=== PATIENT | male | born 1940 | race Caucasian/White ===

== ENCOUNTER 2017-11-04 10:46 | Emergency (ER) | payer OTHER ==
--- NOTE | 2017-11-04 10:59 | PDOC ---
History of Present Illness - General Chief Complaint: Pain Stated Complaint: SHOULDER PAIN Time Seen by Provider: 11/04/17 10:59 - History of Present Illness Initial Comments: 77 year old male with PMH of HTN and CVA (4 years prior, residual left-sided hemiparesis and occasional paresthesias with subsequant right sided overuse) presenting to our ED for right sided shoulder and neck pain that has worsened over the past few weeks. Describes the pain as sharp, intermittent, maximum of 8 /10, worse with movement, and better with rest. The pain radiates up and down his right posterior cervical spine down to his shoulder. He has seen Dr. Chen 5 days prior who obtained an xray which did not show any acute pathology but demonstrated mild arthritis. He then went to a specialist who performed a "nerve " test which he did not yet get the results of . The next test scheduled was an MRI which he says will take too long as it is 2 months away. States he wants an earlier MRI. Of note, he first experienced this pain three months prior after lifting some heavy bottles of water up the stairs. However, this pain he experienced then was less in intensity. He also admits to heavy right sided usage sinsce onset of left sided hemiparesis 4 years prior. Denies fevers, chills, SOB, cough, chest pain, headache, fevers, visual symptoms, balance issues, or other symptoms. 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) COPD: No CHF: No Dementia: No Diabetes: No GI Disorders: Yes (GERD) Disorders: Yes (PROSTATE) HTN: Yes Hypercholesterolemia: Yes Liver Disease: No Seizures: No Thyroid Disease: No - Surgical History Abdominal Surgery: No Appendectomy: Yes Cardiac Surgery: No Cholecystectomy: Yes Lung Surgery: No Neurologic Surgery: No Orthopedic Surgery: No - Immunization History Immunization Up to Date: Yes - Suicide/Smoking/Psychosocial Hx Smoking History: Never smoked Have you smoked in the past 12 months: No Hx Alcohol Use: Yes (WINE SOCIALLY) Drug/Substance Use Hx: No Substance Use Type: None Hx Substance Use Treatment: No Review of Systems - Review of Systems Constitutional: No: Chills, Diaphoresis, Fever, Weakness HEENTM: No: Blurred Vision, Tearing Respiratory: No: Cough, Orthopnea, Shortness of Breath, Wheezing Cardiac (ROS): No: Chest Pain, Edema, Irregular Heart Rate ABD/GI: No: Diarrhea, Nausea, Vomiting : No: Burning, Dysuria, Discharge Musculoskeletal: Yes: Back Pain, Joint Pain, Muscle Pain, Neck Pain. No: Muscle Weakness Integumentary: No: Erythema, Flushing, Lesions Neurological: Yes: Pre-Existing Deficit, Tingling. No: Headache Psychiatric: No: Anxiety, Depression *Physical Exam - Physical Exam General Appearance: Yes: Nourished, Appropriately Dressed. No: Apparent Distress HEENT: positive: EOMI, MAYCO, Normal ENT Inspection, Normal Voice Neck: positive: Trachea midline, Normal Thyroid, Supple. negative: Tender, Rigid Respiratory/Chest: positive: Lungs Clear, Normal Breath Sounds. negative: Chest Tender, Respiratory Distress, Accessory Muscle Use Cardiovascular: positive: Regular Rhythm, Regular Rate Gastrointestinal/Abdominal: positive: Normal Bowel Sounds, Flat, Soft. negative : Tender Lymphatic: negative: Adenopathy, Tenderness Musculoskeletal: positive: Other (Positive painful arc test at apprximately 80 degrees of abduction on ther right side but able to lift shoulder above 90 degrees. Point tender along deltoid posteriorly and posterior right cervical paraspinal muscles/ upper latisimus dorsi). negative: Normal Inspection (left sided keira[aresis), CVA Tenderness, Decreased Range of Motion Extremity: positive: Normal Capillary Refill, Tender (tender upper posterior shoulder). negative: Normal Inspection, Normal Range of Motion Integumentary: positive: Normal Color, Dry, Warm Neurologic: positive: Fully Oriented, Alert, Normal Mood/Affect, Normal Response , Motor Strength 5/5 Medical Decision Making - Medical Decision Making 77 year old male with PMH of CVA with left sided deficits and overcompensation with right sided usage presenting with right sided neck and shoulder pain. PE and history of over use, acute strain three months prior, and overall chronicity point to a musculoskeletal cause more than any other concerning issue (carotid artery dissection, acute cervical/ spinal fracture, stroke, etc) . Given specific PE finding of + painful arc test, this is likely shoulder impingement vs. muscular spasm. Will DC with home OTC tylenol and ibuprofen usage + folow up with his origial orthopedic surgeon. 11/04/17 12:38 *DC/Admit/Observation/Transfer Diagnosis at time of Disposition: Neck pain Shoulder pain, right Qualifiers: Chronicity: chronic Qualified Code(s): M25.511 - Pain in right shoulder; G89.29 - Other chronic pain - Discharge Dispostion Disposition: HOME Condition at time of disposition: Improved Decision to Admit order: No - Referrals Referrals: Umesh Chen MD [Primary Care Provider] - - Patient Instructions Printed Discharge Instructions: DI for Chronic Neck Pain Additional Instructions: Your neck pain and shoulder pain are due to muscular overuse. Please use your Tylenol and lower your heavy lifting until you see your orthopedic surgeon who operated on your knee. Please see him within one week. Please return to the ED if you have new or worsening symptoms. - Post Discharge Activity
[2017-11-04] MEDS ORDERED: KETOROLAC TROMETHAMINE 15 MG/ML VIAL IM ONE (11:19)
[2017-11-04] MEDS ORDERED: traMADol HCL 50 MG TABLET PO ONE (11:30)
[2017-11-04 11:32] VITALS: BP 114/82; PULSE 94; TEMP 98.1; BMI 31.3
[2017-11-04] MEDS ORDERED: traMADol HCL 50 MG TABLET ONE (12:01)
--- NOTE | 2017-11-04 12:12 | PDOC ---
Attending Attestation - Resident Resident Name: Shon Zaragoza - ED Attending Attestation I have performed the following: I have examined & evaluated the patient, The case was reviewed & discussed with the resident, I agree w/resident's findings & plan, Exceptions are as noted - HPI HPI: 11/04/17 12:14 The patient is a 77 year old male, with a significant PMH of CVA with residual left hemiparesis, GERD, HTN, and hypercholesterolemia who presents to the emergency department with right shoulder pain that began approximately 3 months ago. Patient states symptoms began after carrying a pack of heavy water bottles 3 months ago. Pain has progressively become worse over the last few weeks. Pt points to his trapezium muscle on the R as the source of the pain. Patients notes pain is exacerbated with movement of his RUE and alleviated at rest. Denies numbness or weakness in the RUE. He is being worked up by his PMD Dr. Chen for this pain and is approved for an MRI for work up but it is not scheduled for a few weeks. Pt presented to the ED today hoping to have his MRI done here today. The patient denies chest pain, shortness of breath, headache and dizziness. Denies fever, chills, nausea, vomit, diarrhea and constipation. Denies dysuria, frequency, urgency and hematuria. Allergies: NKDA Past surgical history: Appendectomy, Cholecystectomy Social history: Drinks wine socially but denies alcohol and recreational drug use. PCP: Umesh Chen - Physicial Exam PE: 11/04/17 12:25 GENERAL: Awake, alert, and fully oriented, in no acute distress HEAD: No signs of trauma EYES: PERRLA, EOMI, sclera anicteric, conjunctiva clear ENT: Auricles normal inspection, hearing grossly normal, nares patent, oropharynx clear without exudates. Moist mucosa NECK: Normal ROM, supple, no lymphadenopathy, JVD, or masses LUNGS: Breath sounds equal, clear to auscultation bilaterally. No wheezes, and no crackles HEART: Regular rate and rhythm, normal S1 and S2, no murmurs, rubs or gallops ABDOMEN: Soft, nontender, normoactive bowel sounds. No guarding, no rebound. No masses EXTREMITIES: Normal range of motion, no edema. No clubbing or cyanosis. No cords, erythema, or tenderness. P NEUROLOGICAL: Normal speech, cranial nerves intact, decreased strength on LUE and LLE (at baseline). 5/5 strength in RUE. Normal sensation to RUE. BACK: No midline spinal tenderness in cervical/thoracic/lumbar region. +ttp along the R trapezium, increases with ROM of RUE. SKIN: Warm, Dry, normal turgor, no rashes or lesions noted. - Medical Decision Making 11/04/17 12:29 77yo M with MMP presents to the ED requesting MRI for 3 months of R sided trapezius pain. Vitals wnl (initial O2 sat 94%, 96% on my exam). Exam with ttp to R trap muscle consistent with msk pain. Pt is NVI. Given lack of emergent pathology and intact NV status, discussed with pt that an emergent MRI in the ED is not necessary, [place] if he already has one planned as an outpt. Pt expresses understanding. Given tramadol for pain control, will DC to f/u with PMD. I discussed the physical exam findings, ancillary test results and final diagnoses with the patient. I answered all of the patient's questions. The patient was satisfied with the care received and felt comfortable with the discharge plan and treatment plan. The patient will call their primary care physician within 24 hours to arrange follow-up and will return to the Emergency Department with any new, persistent or worsening symptoms.
--- NOTE | 2017-11-05 13:31 | EKG ---
Test Reason : Blood Pressure : / mmHG Vent. Rate : 079 BPM Atrial Rate : 079 BPM P-R Int : 196 ms QRS Dur : 088 ms QT Int : 360 ms P-R-T Axes : 015 -07 -12 degrees QTc Int : 412 ms NORMAL SINUS RHYTHM MINIMAL VOLTAGE CRITERIA FOR LVH, MAY BE NORMAL VARIANT BORDERLINE ECG WHEN COMPARED WITH ECG OF 16-JUL-2015 05:53, VENT. RATE HAS INCREASED BY 34 BPM QT HAS LENGTHENED Confirmed by CECILIA SADLER MD ([id number]) on 11/05/2017 1:30:53 PM Referred By: Confirmed By:CECILIA SADLER MD
== END 2017-11-04 13:09 | disposition home or self-care (01) ==
LOC: JER 10:46
DX: M54.2 Cervicalgia (principal); M25.511 Pain in right shoulder; G89.29 Other chronic pain; I10 Essential (primary) hypertension; E78.00 Pure hypercholesterolemia, unspecified; K21.9 Gastro-esophageal reflux disease without esophagitis; I69.854 Hemiplegia and hemiparesis following other cerebrovascular disease affecting left non-dominant side
CPT/HCPCS: 93005; 93010; 99283-25

== ENCOUNTER 2019-03-17 13:11 | Day surgery (SDC) | payer OTHER ==
[2019-03-17 13:48] VITALS: TEMP 98.3; BMI 32.2
[2019-03-17 14:56] VITALS: PULSE 60
[2019-03-17 15:49] VITALS: BP 115/68
--- NOTE | 2019-03-21 17:01 | PATH ---
Surgical Pathology Report Patient Name: VILMA DEAN [facility]. Rec. #: [id number] /Age/Gender: 1940 (Age: 79) / M Account: [id number] Location: U-ENDOSCOPY Taken: 03/17/2019 Received: 03/18/2019 Reported: 03/21/2019 Physicians: Gómez Cervantes M.D. Specimen(s) Received BX BODY Clinical History Heartburn with regurgitation despite PPI Postoperative diagnosis: Nodular mucosa in body, rule out H. Pylori, hiatal hernia Final Diagnosis BODY, BIOPSY: GASTRIC MUCOSA WITH MILD CHRONIC GASTRITIS AND FOCAL DILATED GLANDS. IMMUNOSTAIN FOR H. PYLORI IS NEGATIVE. NEGATIVE FOR INTESTINAL METAPLASIA. Electronically Signed Aracely Aguillon M.D. Gross Description Received in formalin, labeled "biopsy body" are 3 myeer, irregular portions of soft tissue ranging from 0.2-0.3 cm. in greatest dimension. The specimens are submitted in toto in one cassette. 03/18/2019 saudi03/18/2019
== END 2019-03-17 15:49 | disposition home or self-care (01) ==
LOC: JASU-ENDO 13:11
PROVIDERS: ATTEND Internal Medicine Gastroenterology
PROC: 0DB68ZX Excision of Stomach, Via Natural or Artificial Opening Endoscopic, Diagnostic (ICD-10-PCS; principal; 2019-03-17 13:30)
DX: K29.50 Unspecified chronic gastritis without bleeding (principal); K44.9 Diaphragmatic hernia without obstruction or gangrene
CPT/HCPCS: 88305-TC; 88342-TC

== ENCOUNTER 2019-05-21 06:40 | Day surgery (SDC) | payer OTHER ==
[2019-05-20 16:00] VITALS: BMI 32.2
[2019-05-21] MEDS ORDERED: KETOROLAC TROMETHAMINE 30 MG/1 ML VIAL ONE (09:18)
[2019-05-21] MEDS ORDERED: MIDAZOLAM HCL 2 MG/2 ML SINGLE DOSE VIAL ONE (09:18)
[2019-05-21] MEDS ORDERED: PROPOFOL 20 ML ONE ×2 (09:18)
[2019-05-21] MEDS ORDERED: LIDOCAINE HCL/PF 2% SDV 5ML VIAL ONE (09:18)
[2019-05-21] MEDS ORDERED: DEXAMETHASONE SOD PHOSPHATE 4 MG/1 ML VIAL ONE (09:18)
[2019-05-21] MEDS ORDERED: ceFAZolin SODIUM 1 GM VIAL IVPB ONE (09:35)
[2019-05-21] MEDS ORDERED: ceFAZolin SODIUM 1 GM VIAL ONE ×2 (09:40)
[2019-05-21] MEDS ORDERED: oxyCODONE HCL 5 MG TABLET PO PRN ×2 (10:41→11:02)
[2019-05-21] MEDS ORDERED: PROMETHAZINE HCL 25 MG/1 ML VIAL IVPB PRN (10:41)
[2019-05-21] MEDS ORDERED: ONDANSETRON 4 MG/2 ML VIAL IVPUSH PRN (10:41)
[2019-05-21] MEDS ORDERED: ACETAMINOPHEN 325 MG TABLET (FP) PO PRN ×2 (10:51→11:02)
[2019-05-21] MEDS ORDERED: TAMSULOSIN HCL 0.4 MG CAP PO ONE (10:51)
--- NOTE | 2019-05-21 10:57 | OP ---
Operative Note - Note: Operative Date: 05/21/19 Pre-Operative Diagnosis: bph with luts and hematuria and large post-void residuel Operation: cysto, turp/tuvp Findings: trilobar hypertrophy and bladder diverticulum Post-Operative Diagnosis: Same as Pre-op Janitor Supervisor: Alfonso Chen Anesthesia: General Specimens Removed: prostate chips and urine Estimated Blood Loss (mls): 50 Drains & Tubes with Location: 24f 30cc 3way mcneil Drains, Volume Out (mls): 0 Blood Volume Replaced (mls): 0 Fluid Volume Replaced (mls): 0 Operative Report Dictated: Yes
[2019-05-21] MEDS ORDERED: DEXTROSE 5%-0.45% SALINE 1,000 ML IV SCH (11:00)
--- NOTE | 2019-05-21 12:49 | PREOP ---
DATE OF ADMISSION: 05/21/2019 DATE OF DICTATION: 05/21/2019 HISTORY OF PRESENT ILLNESS: Patient is an 79-year-old male with history of prostatism, including hesitancy, weak flow, terminal dribbling, nocturia x3, and feelings of incomplete bladder emptying. He does have history of atrial fibrillation, coronary artery disease, and hypertension. He has been off Xarelto for 1 week. MEDICATIONS: 1. He is on Baclofen. 2. Toprol. 3. Lasix. PHYSICAL EXAMINATION: General: Revealed a well-developed, adult male in no apparent distress. Chest: Clear. Heart: Regular. Abdomen: Soft. No CVA tenderness is elicited. No hepatosplenomegaly was palpable. Genitalia: Revealed a circumcised, adult male penis. Meatus is adequate. Testes are normal in size and consistency. No hernias or hydroceles were elicited. Rectal: Exam revealed a 2+ smooth, benign, nontender prostate. IMAGING: Ultrasound of the kidneys revealed normal upper tracks. LABORATORY: The patient's PSA was 1.1. BUN and creatinine are 18 over 1.2. IMPRESSION: At present is benign prostatic hypertrophy with lower urinary track symptoms; large postvoid residual; suspicious cytology. PLAN: Cystourethroscopy. Possible bladder biopsy. Collection of urine for cytology. Possible TURP. Graciela [id number]
[2019-05-21] MEDS ORDERED: DOCUSATE SODIUM 100 MG CAPSULE (FP) PO SCH (22:00)
[2019-05-21] MEDS ORDERED: PT OWN MED DRAWER 7, Y5N ONE (22:05)
[2019-05-21] MEDS: CIPROFLOXACIN 500 MG TABLET (RESTRICTED TO ID) PO SCH (22:55)
--- NOTE | 2019-05-21 23:17 | OP ---
DATE OF OPERATION: 05/21/2019 PREOPERATIVE DIAGNOSIS: Obstructive uropathy, hematuria, prostatism. POSTOPERATIVE DIAGNOSIS: Trilobar hypertrophy of the prostate, bladder diverticulum, grade 3 trabeculation of the bladder. OPERATIVE PROCEDURE: Cystourethroscopy, transurethral resection, and transurethral vaporization of prostate. ANESTHESIA: General. DESCRIPTION OF PROCEDURE: Under above stated anesthesia, patient was prepped and draped in the usual sterile manner. He was placed in the dorsal lithotomy position. Cystoscopy revealed a normal anterior urethra. Prostatic urethra revealed hyperemia of both right and left lobe. There was lateral lobe kissing. There was a high median lobe. The bladder was entered. Urine was collected for cytology and culture and sensitivity. The bladder revealed a grade 3 trabeculation with multiple . There was a wide-mouthed diverticulum in the left posterior wall 2 cm proximal to the left ureteral orifice. No lesions were seen in the bladder. Efflux was clear. A resectoscope was inserted. Resection of the prostate was performed in the usual fashion by commencing at the 6 o'clock position of the right lateral lobe and going on up to the 12 o'clock position. This was carried down from the bladder neck to the verumontanum. Same thing was done to the contralateral side. Prostate chips were evacuated with an Virtualmin evacuator. Plasma button was introduced and excess tissue was vaporized. Hemostasis was secured with cautery. No active bleeding was noted. Therefore the scope was removed. A 24 Portuguese, 30 mL, 3-way Rizzo was inserted. This was connected to drainage bag. The patient tolerated the procedure well. He returned to the recovery room in good condition. Graciela [id number]
[2019-05-22 08:38] VITALS: BP 137/82; PULSE 78; TEMP 99
[2019-05-22] MEDS ORDERED: PT OWN MED DRAWER 7, Y5N ONE (09:14)
[2019-05-22] MEDS: CIPROFLOXACIN 500 MG TABLET (RESTRICTED TO ID) PO SCH (09:18)
[2019-05-22] MEDS ORDERED: metoPROLOL SUCCINATE 25 MG TAB.SR.24H (FP) PO SCH (10:00)
[2019-05-22] MEDS ORDERED: FUROSEMIDE 20 MG TABLET (FP) PO SCH (10:00)
--- NOTE | 2019-05-22 16:33 | PATH ---
Surgical Pathology Report Patient Name: VILMA DEAN [facility]. Rec. #: [id number] /Age/Gender: 1940 (Age: 79) / M Account: [id number] Location: AMBULATORY SURG Taken: 05/21/2019 Received: 05/21/2019 Reported: 05/22/2019 Physicians: Alfonso Chen M.D. Specimen(s) Received PROSTATE CHIPS Clinical History Hematuria Final Diagnosis PROSTATE CHIPS, TRANSURETHRAL RESECTION OF PROSTATE: BENIGN PROSTATIC TISSUE WITH ACINAR ATROPHY, CYSTIC CHANGES, GLANDULAR AND STROMAL HYPERPLASIA. Electronically Signed Alyse Crews M.D. Gross Description Received in formalin labeled "prostate chips," is a 2 g, 4.5 x 3.5 x 0.3 cm aggregate of meyer, firm to rubbery portions of tissue, consistent with prostate chips. The specimen is entirely submitted in 3 cassettes. DL/05/21/2019 saudi/05/21/2019
== END 2019-05-22 11:13 | disposition home health service (06) ==
LOC: JASU-SURG 06:40 → JASUSAT 06:40 → J7W 14:53 → JASUSAT 05-22 11:13
PROVIDERS: ATTEND Urology
PROC: 0VT08ZZ Resection of Prostate, Via Natural or Artificial Opening Endoscopic (ICD-10-PCS; principal; 2019-05-21 09:00)
DX: N40.0 Benign prostatic hyperplasia without lower urinary tract symptoms (principal); N32.89 Other specified disorders of bladder
CPT/HCPCS: 94760

== ENCOUNTER 2022-03-14 10:19 | Emergency (ER) | payer OTHER ==
[2022-03-14 10:53] VITALS: BMI 29.7
[2022-03-14] MEDS ORDERED: ACETAMINOPHEN 500 MG TABLET (FP) PO ONE (12:53)
[2022-03-14] MEDS ORDERED: LIDOCAINE 5% TOPICAL PATCH TP ONE (12:55)
[2022-03-14] MEDS ORDERED: LIDOCAINE 5% TOPICAL PATCH ONE (12:57)
[2022-03-14] MEDS ORDERED: ACETAMINOPHEN 325 MG TABLET (FP) ONE (12:57)
[2022-03-14] MEDS ORDERED: KETOROLAC TROMETHAMINE 15 MG/ML VIAL IM ONE (14:58)
[2022-03-14] MEDS ORDERED: KETOROLAC TROMETHAMINE 15 MG/ML VIAL ONE (15:04)
[2022-03-14 16:58] VITALS: BP 135/75; PULSE 75; RESP 18; TEMP 97.8
[2022-03-14] MEDS ORDERED: LIDOCAINE PATCH REMOVAL MC SCH (22:00)
== END 2022-03-14 16:58 | disposition home or self-care (01) ==
LOC: JER 10:19
PROC: 3E0233Z Introduction of Anti-inflammatory into Muscle, Percutaneous Approach (ICD-10-PCS; principal; 2022-03-14)
DX: M54.31 Sciatica, right side (principal); M25.551 Pain in right hip
CPT/HCPCS: 72170-TC-FY; 73502-TC-RT-FY; 99284-25